=== PATIENT | male | born 1975 | race Hispanic/Latino ===

== ENCOUNTER → 2019-05-25 17:16 | Outpatient (CLI) | payer OTHER, SELFPAY ==
--- NOTE | 2019-05-25 17:25 | DI.RAD.S_ITS ---
PROCEDURE: XR WRIST RT MIN 3V INDICATIONS: crush injury with swelling/pain distal forearm, r/o fx TECHNIQUE: 4 views of the wrist were acquired. COMPARISON: None. FINDINGS: Bones: No fractures or dislocations. No suspicious bony lesions. Scaphoid view: No visualized fracture. Soft tissues: No suspicious soft tissue calcifications. IMPRESSION: No visualized acute fracture or dislocation. However, if clinical concern and/or pain persist, short interval imaging followup in 7-10 days is recommended, as occult injury cannot be definitively excluded. Dictated by: Guadalupe Hair M.D. on 05/25/2019 at 16:42 Approved by: Guadalupe Hair M.D. on 05/25/2019 at 16:48
--- NOTE | 2019-05-25 17:25 | DI.RAD.S_ITS ---
PROCEDURE: XR FOREARM RT 2V INDICATIONS: crush injury with swelling/pain distal forearm, r/o fx TECHNIQUE: 2 views of the forearm were acquired. COMPARISON: None. FINDINGS: Bones: No fractures or dislocations. No suspicious bony lesions. Soft tissues: No suspicious soft tissue calcifications or masses. IMPRESSION: No visualized acute fracture or dislocation. However, if clinical concern and/or pain persist, short interval imaging followup in 7-10 days is recommended, as occult injury cannot be definitively excluded. Dictated by: Guadalupe Hair M.D. on 05/25/2019 at 16:48 Approved by: Guadalupe Hair M.D. on 05/25/2019 at 16:48
== END ==
PROVIDERS: Visit Provider Physician Assistant
DX: S67.31XA Crushing injury of right wrist, initial encounter (principal); X58.XXXA Exposure to other specified factors, initial encounter
CPT/HCPCS: 73090; 73110